=== PATIENT | male | born 1985 | race Caucasian/White ===

== ENCOUNTER 2023-05-05 16:23 | Inpatient (IN) | payer OTHER, SELFPAY ==
[2023-05-05 16:28] VITALS: BP 130/88; PULSE 81; O2SAT 98
[2023-05-05 16:40] VITALS: BP 130/87; PULSE 92; RESP 18; TEMP 36.6; O2SAT 98; BMI 25.1
--- NOTE | 2023-05-05 16:49 | PC.NURSE ---
Initial contact with pt. pt changed into hospital attire, snacks and fluids given. pt denies any SI, reports no ETOH or other substances, states he has been very anxious and depressed.
--- NOTE | 2023-05-05 17:09 | MHC.CARE ---
Pt had a court hearing today in [place] for [address]. [address] clinician called to inquire on how they can get him here as [place] [facility] [place].
[2023-05-05 17:10] LABS: MANUAL DIFF FLAG NO
[2023-05-05 17:14] LABS: Basophils Percent Auto 0.4 % (0-2); Eosinophils Percent Auto 0.1 % (0-4); Hematocrit 45.1 % (42.0-52.0); Hemoglobin 14.9 g/dl (14.0-18.0); Imm Gran Abs Auto 0.03 X10*3/uL (0.00-0.03); Imm Gran Pct Auto 0.4 % (0.0-0.4); Lymphocytes Absolute Auto 1.7 X10*3/uL (1.2-4.9); Mean Corpuscular Hemoglobin 30.8 pg (27.0-33.0); Mean Corpuscular Volume 93.2 fL (80.0-98.0); Mean Platelet Volume 8.3 fL (9.4-12.4); Monocytes Absolute Auto 0.9 X10*3/uL (0.1-1.2); Monocytes Percent Auto 10.3 % (2-11); Neutrophils Absolute Auto 5.9 x10*3/uL (2.0-8.3); Neutrophils Percent Auto 68.8 % (45-73); Platelet Count 191 X10*3/uL (160-400); Red Blood Count 4.84 X10*6/uL (4.60-5.80); Red Cell Distribution Width 12.9 % (11.0-16.0); White Blood Count 8.6 X10*3/uL (4.8-10.8)
[2023-05-05 17:28] LABS: Alanine Aminotransferase 12 U/L (0-40); Albumin Level 4.9 g/dL (3.5-5.0); Alkaline Phosphatase 73 U/L (39-117); Anion Gap 10 (12-20); Aspartate Amino Transferase 19 U/L (5-37); Bilirubin Total 0.5 mg/dL (0.0-1.0); Blood Urea Nitrogen 17 mg/dL (9-16); COVID-19 Test Negative (Negative); Calcium 10.7 mg/dL (8.4-10.2); Carbon Dioxide 28 mmol/L (22-29); Chloride 105 mmol/L (96-108); Creatinine Clr Calc Pharmacy 95.4; Estimated Glomerular Filt Rate > 60; Ethanol < 10 mg/dL; Glucose Random 167 mg/dL (60-115); IDNOW Serial# BCCEAD1C; Potassium 4.5 mmol/L (3.3-5.1); Sodium 138 mmol/L (135-145); Total Protein 7.9 g/dL (6.5-8.0)
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
[2023-05-05 18:05] LABS: Lithium 0.42 mmol/L (0.60-1.20)
--- NOTE | 2023-05-05 18:16 | PC.NURSE ---
Meal tray provided, pt ate well. Mother at bedside.
--- NOTE | 2023-05-05 18:39 | PC.NURSE ---
care team at bedside for eval
--- NOTE | 2023-05-05 19:30 | PC.NURSE ---
patient awake and conversing with mom and care team staff when t/w arrived to unit. client recognized me from a previous admission and looked relaxed in first starting to speak to me, seemed he had no questions at this time
[2023-05-05] MEDS: Nicotine Polacrilex 2 MG GUM 4 MG BUCCAL (19:34)
[2023-05-05 19:36] LABS: Appearance Urine Clear; Color Urine Yellow; Glucose Urine UA Negative (Negative); Leukocyte Esterase Urine Negative (Negative); Nitrite Urine Negative (Negative); Specific Gravity - Urine <= 1.005 (1.005-1.025); Urine Blood Negative (Negative); Urine Ketones Negative (Negative); Urine Protein Negative (Neg-Trace)
[2023-05-05 19:42] LABS: Amphetamine Screen Urine Not Detected (Not Detect); Barbiturates, Urine Not Detected (Not Detect); Benzodiazepines Screen Urine Not Detected (Not Detect); Cannabinoid Screen Urine Not Detected (Not Detect); Cocaine Screen Urine Not Detected (Not Detect); Fentanyl, urine Not Detected (Not Detect); Opiate Screen Urine Not Detected (Not Detect); Phencyclidine Screen Urine Not Detected (Not Detect)
[2023-05-05] MEDS: Lithium Carbonate 300 MG CAPSULE 900 MG PO (21:19)
[2023-05-05] MEDS: OLANZapine 10 MG TABLET 20 MG PO (21:19)
[2023-05-05] MEDS: Benztropine Mesylate 1 MG TABLET PO (21:19)
[2023-05-05] MEDS: cloZAPine 100 MG TABLET 600 MG PO (22:02)
--- NOTE | 2023-05-06 06:02 | PC.NURSE ---
patient appeared to sleep lengthy periods uninterruptedly and able to let wants/needs be known. overall patient is easily reassured and pleasant, still remains impulsive but maintains safe behavior.
[2023-05-06] MEDS: cloZAPine 100 MG TABLET 200 MG PO (08:57)
[2023-05-06] MEDS: Benztropine Mesylate 1 MG TABLET PO ×2 (08:57→20:23)
[2023-05-06] MEDS: Nicotine Polacrilex 2 MG GUM 4 MG BUCCAL (08:58)
[2023-05-06] MEDS: Nicotine Polacrilex 2 MG GUM BUCCAL ×6 (11:16→22:09)
--- NOTE | 2023-05-06 12:20 | PC.NURSE ---
patient is alert and able to make needs known. Patient continues to ambulate independently around unit. Patient took morning medications and requested PRN nicotine gum. Patient has a good appetite and ate 100% of breakfast. Patient sitting in chair watching tv in common area at this time.
[2023-05-06 14:33] VITALS: BP 122/81; PULSE 101; TEMP 36.9; O2SAT 98
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
[2023-05-06] MEDS: OLANZapine 10 MG TABLET 20 MG PO (20:23)
[2023-05-06] MEDS: Lithium Carbonate 300 MG CAPSULE 900 MG PO (20:23)
[2023-05-06 20:32] VITALS: BP 147/95; PULSE 92; RESP 18; TEMP 36.6; O2SAT 99
[2023-05-06] MEDS: cloZAPine 100 MG TABLET 600 MG PO (21:41)
--- NOTE | 2023-05-07 | ECG_ITS ---
Test Reason : CHECK PROLONG QT Blood Pressure : / mmHG Vent. Rate : 095 BPM Atrial Rate : 095 BPM P-R Int : 150 ms QRS Dur : 108 ms QT Int : 348 ms P-R-T Axes : 055 074 042 degrees QTc Int : 437 ms Normal sinus rhythm Nonspecific T wave abnormality Abnormal ECG No previous ECGs available Referred By: Jesus Bonilla Electronically Signed By:DEE PATTERSON MD
[2023-05-07 06:35] VITALS: RESP 17
--- NOTE | 2023-05-07 08:39 | PC.NURSE ---
pt difficult to understand, flights of ideas and delusions consistent. pt in behavioral control at this time
[2023-05-07] MEDS: Benztropine Mesylate 1 MG TABLET PO ×2 (08:43→21:01)
--- NOTE | 2023-05-07 08:53 | PC.NURSE ---
call placed to pharmacy for clozaril not loaded in pyxis
[2023-05-07] MEDS: Nicotine Polacrilex 2 MG GUM BUCCAL ×6 (08:56→22:12)
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
--- NOTE | 2023-05-07 09:58 | MHC.CARE ---
Jamal with [facility], calls with inquiries into patient's potential for admission as well as to offer any support with legal matters pertaining to the 12e if needed, i.e. reaching out to the courts, petitioning for more days if needed.
[2023-05-07] MEDS: cloZAPine 100 MG TABLET 200 MG PO (10:23)
[2023-05-07 13:57] LABS: Parathyroid Hormone Intact 77.7 pg/mL (8.7-77.1)
[2023-05-07 16:56] LABS: Vitamin D 25-OH Total 37.3 ng/mL (>30)
--- NOTE | 2023-05-07 19:47 | PC.NURSE ---
patient seated in milieu, at times, briskly going to door looking out crack in door trying to get view of outside, responds to redirection. appears in no distress
[2023-05-07] MEDS: Lithium Carbonate 300 MG CAPSULE 900 MG PO (21:01)
[2023-05-07] MEDS: cloZAPine 100 MG TABLET 600 MG PO (21:01)
[2023-05-07] MEDS: OLANZapine 10 MG TABLET 20 MG PO (21:01)
[2023-05-07 21:56] VITALS: BP 128/85; PULSE 88; RESP 16; TEMP 36.8; O2SAT 99
[2023-05-07] MEDS: Sennosides/Docusate Sodium TABLET 1 TAB PO (22:26)
[2023-05-07 23:50] VITALS: BP 134/82; PULSE 97; RESP 14; TEMP 36.7; O2SAT 100; BMI 25.4
--- NOTE | 2023-05-08 04:28 | PC.ADMIT ---
this is the first M3 admission for this 37 year old male. patient with previous inpatient admissions for behavioral health. legal status CV. dx: schizoaffective d/o. was a referral from [facility]. nurse to nurse, collateral information obtained prior to admission. patient was referred to the ER after a section 12E was obtained from the courts. patient's mother is guardian. patient described as impulsive and delusional per assessment. see crisis assessment. medication reconciliation completed while in the emergency room. has been compliant with medications as out patient and while in the emergency. is on clozaril. clozaril/norclozaril level pending. on arrival to unit at 2333 patient was cooperative to skin check, weight, VS. while sitting in dayroom patient impulsively calling out for his sister, checking the length of the hallways. when re oriented to unit and that he was in the hospital stated ''I know that'' denies SI/HI. impulsive in movement but not agitation noted. no drug/alcohol issues. no medical issues noted. oriented to unit. safety tool, treatment plan initiated.
--- NOTE | 2023-05-08 07:01 | PHA.MEDREC ---
Pharmacy Consult ? Medication Reconciliation Pharmacy has completed the medication reconciliation.
[2023-05-08 07:15] VITALS: BP 131/77; PULSE 92; RESP 18; TEMP 36.6; O2SAT 98
[2023-05-08 08:44] LABS: Lithium 0.52 mmol/L (0.60-1.20)
[2023-05-08] MEDS: Benztropine Mesylate 1 MG TABLET PO ×2 (08:56→21:07)
[2023-05-08] MEDS: Sennosides/Docusate Sodium TABLET 1 TAB PO ×2 (08:56→21:08)
[2023-05-08] MEDS: cloZAPine 100 MG TABLET 200 MG PO (08:56)
[2023-05-08 08:57] LABS: Alanine Aminotransferase 13 U/L (0-40); Albumin Level 4.5 g/dL (3.5-5.0); Alkaline Phosphatase 70 U/L (39-117); Anion Gap 9 (12-20); Aspartate Amino Transferase 18 U/L (5-37); Bilirubin Total 0.4 mg/dL (0.0-1.0); Blood Urea Nitrogen 17 mg/dL (9-16); Calcium 10.5 mg/dL (8.4-10.2); Carbon Dioxide 28 mmol/L (22-29); Chloride 109 mmol/L (96-108); Cholesterol 158 mg/dL (<200); Creatinine Clr Calc Pharmacy 113.4; Estimated Glomerular Filt Rate > 60; Glucose Fasting 97 mg/dL (60-99); HDL Cholesterol 59 mg/dL (>40); LDL Cholesterol Calculated 78 mg/dL (<100); Potassium 4.6 mmol/L (3.3-5.1); Sodium 141 mmol/L (135-145); Total Protein 7.2 g/dL (6.5-8.0); Triglycerides 108 mg/dL (<150)
--- NOTE | 2023-05-08 08:58 | HO.PSYADMNOT ---
HPI Date of Service: 05/08/23 Chief Complaint: Psychosis Dangerous Behavior HPI Narrative: per CARE team evaluation pt has not been at his baseline, per pt's mother, for the past several months. he has been very paranoid and has, concerningly, been attempting to exit moving vehicles. it is unclear exactly how he got to the hospital, but CARE team ariana states his mother and his outpt psych MD cervantes obtained a section 12e in [facility], which is a court order for mental health eval. CARE team evlorenzo reports collateral collected from Radha at [facility] in [place], who reported pt has a h/o engaging in risky behaviors, is a flight risk and is resistant to going inpatient. she reports that pt has a hx of self harm via cutting, stalking behaviors toward clients, accused of sexually inappropriate behaviors toward other clients, property destruction, and poor judgment due to psychosis. it is unclear if any of these behaviors have been occurring recently, or if this is purely historical data. per CARE team eval, pt's mother has been trying to get a second opinion for pt from dr. ireland and approached outpt practice but was informed it is full. 12e was obtained and pt brought to [facility]. recent behaviors identified in CARE team ariana are attempting to jump out of presumably moving vehicles, as well as running into the road when he is experiencing delusions (specifically indicated not to be a SA). 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 he has reportedly had numerous medication trials, per dr. cervantes, and is essentially at baseline at present. he informed mother of this, and mother is interested in second opinion. on interview with MD, pt is very cautious, unable to remain in interview room for interview, asks MD to speak with him as we walk in the ivy. he denies safety concerns or substance use. he identifies as target symptoms sedation, anxiety, and depression. he is unsure how his mood is today. he observes that there is a man in a suit, with a knife, who wants to kill pt's polk, whom he reports he is going to and who loves him. he adds that she is from [facility]. he states he does not wish to be in the hospital very long and encourages MD to meet with his mother. Past Psychiatric History: h/o childhood OCD and tourette's Dx. first psychotic break around 19 yo, mother has had guardianship of him since. hosps: h/o hosps, number unknown SA: pt denies SIB: pt denies, Hx collected from [facility] [place] indicates otherwise outpt: [facility] for meds. Medical Evaluation Reviewed: Yes [facility] Narrative: ?TBI Family History: bipolar with psychosis on the maternal side, possible schizoaffective on father's side, per CARE team report Social History: born in [facility] when he was 8 yo. has older brother and sister. left school in 8th grade, got GED later. [facility] [place], [place]. [facility]. has been there over 1 year. h/o DCF involvement, pt was removed from mother's care due to school delinquencies. father lives in [place]. Substance History: none reported Trauma History: endorsed h/o trauma but did not divulge details. did divulge h/o bullying in [employer]. Diagnostics Vital Signs (24Hr): Vital Signs - 24 hr 05/07/23 21:56 05/07/23 23:50 05/08/23 07:15 Temperature 98.3 F 98.1 F 97.8 F Pulse Rate 88 97 92 Respiratory Rate 16 14 18 Blood Pressure 128/85 134/82 131/77 Pulse Oximetry 99 100 98 Oxygen Delivery Method Room Air Room Air Room Air BMI result Body Mass Index 25.4 Labs 05/05/23 17:06 05/08/23 08:02 Labs: Laboratory Results - last 48 hr 05/07/23 05/08/23 05/08/23 13:22 08:02 08:08 Sodium 141 Potassium 4.6 Chloride 109 H Carbon Dioxide 28 Anion Gap 9 L BUN 17 H Creatinine 0.90 Estim Creat Clear Calc 113.4 Estimated GFR > 60 Fasting Glucose 97 Calcium 10.5 H Total Bilirubin 0.4 AST 18 ALT 13 Alkaline Phosphatase 70 Total Protein 7.2 Albumin 4.5 Triglycerides 108 Cholesterol 158 LDL Cholesterol, Calc 78 HDL Cholesterol 59 25-OH Vitamin D Total 37.3 PTH Intact 77.7 H [place] 0.52 L Meds/Allergies Meds Home Medications Medication Instructions Recorded Confirmed Type acetaminophen 325 mg tablet 650 mg PO Q6H PRN Pain, Mild 05/05/23 05/05/23 History albuterol sulfate 90 mcg/actuation 2 puff inhalation Q4H PRN 05/05/23 05/05/23 History aerosol inhaler (Ventolin HFA) Shortness Of Breath benztropine 1 mg tablet 1 mg PO BID 05/05/23 05/05/23 History clozapine 200 mg tablet 200 mg PO DAILY 05/05/23 05/05/23 History clozapine 200 mg tablet 600 mg PO BEDTIME 05/05/23 05/05/23 History dextromethorphan-guaifenesin 10 10 ml PO Q4H PRN Cough 05/05/23 05/05/23 History mg-100 mg/5 mL oral syrup docusate sodium 100 mg capsule 100 mg PO BID PRN Constipation 05/05/23 05/05/23 History lithium carbonate 300 mg capsule 900 mg PO BEDTIME 05/05/23 05/05/23 History nicotine (polacrilex) 2 mg gum 2 mg PO Q30M PRN Nicotine Cravings 05/05/23 05/05/23 History olanzapine 20 mg tablet 20 mg PO BEDTIME 05/05/23 05/05/23 History Allergies Allergies Allergy/AdvReac Type Severity Reaction Status Date / Time Environmental Allergy Mild UNKNOWN Uncoded 02/23/20 17:44 Mental Status Exam Mental Status Exam Narrative: adequately dressed and groomed. cooperative. no PMA/PMR. speech nml amound and rate. decr loudness and latency. thoughts vary from linear to tangential. delusional. affect blunted. mood unsure. denies SI/SIBI/HI/AVH. Assessment & Plan Assessment & Plan (1) Chronic schizophrenia: Status: Acute Code(s): F20.9 - Schizophrenia, unspecified Plan schizophrenia, chronic, treatment refractory collect collateral from helen on med trials, alternate therapies tried (ie, ECT), and medical Hx (TBI was mentioned by helen according to CARE team ariana). lithium subtherapeutic. clozaril 800 - level drawn, awaiting results calcium and PTH mildly elevated continue current medications for now pending collateral from helen Patient educated on: medication risk/benefits Reason for continued inpatient stay Substantial Risk for: harm to self and inability to function Statement Statement: I have reviewed the history and physical and performed a pertinent examination on my patient. No changes have occurred unless specified. If the History and Physical was not performed prior to admission, the Hospitalist's service will be consulted for completing the admission physical. Time Spent With Patient Time: Total time managing care of this patient today __75__ minutes.
[2023-05-08 09:13] LABS: Thyroid Stimulating Hormone 2.74 uIU/mL (0.32-4.0)
[2023-05-08] MEDS: Nicotine Polacrilex 2 MG GUM BUCCAL ×4 (12:33→21:08)
[2023-05-08 21:00] VITALS: BP 133/79; PULSE 99; RESP 14; TEMP 37.2; O2SAT 97
[2023-05-08] MEDS: Lithium Carbonate 300 MG CAPSULE 900 MG PO (21:07)
[2023-05-08] MEDS: cloZAPine 100 MG TABLET 600 MG PO (21:07)
[2023-05-08] MEDS: OLANZapine 10 MG TABLET 20 MG PO (21:07)
[2023-05-09 08:28] VITALS: BP 97/55; PULSE 84; TEMP 36.2; O2SAT 96
[2023-05-09] MEDS: Sennosides/Docusate Sodium TABLET 1 TAB PO ×2 (09:27→21:13)
[2023-05-09] MEDS: Benztropine Mesylate 1 MG TABLET PO ×2 (09:28→21:13)
[2023-05-09] MEDS: cloZAPine 100 MG TABLET 200 MG PO (09:28)
[2023-05-09] MEDS: Nicotine Polacrilex 2 MG GUM BUCCAL ×4 (11:16→20:15)
--- NOTE | 2023-05-09 13:10 | P.PNPSI_ITS ---
Subjective Subjective Date of Service: 05/09/23 Reason For Visit: Psychosis Dangerous Behavior Medical Problems Affecting Mental Status: No Interim History: met with patient. Discussed with Nursing. Some anxiety and internal preoccupation. Likes to pace the hallways. Also likes looking outside the door of the unit and does not appear to be exit seeking. Reports he is doing okay. Reports depression and anxiety are better. Reports clozapine makes him feel sluggish. Denied constipation and had a bowel movement yesterday. Reports feeling safe. Reports in the past he has had some hallucinations and I trick myself Medication Compliance: Yes Side effects from medications: No Attending Groups: Intermittent Review of Systems Acute medical concerns: No Review of Systems Review of Systems Yes all other systems are reviewed and are negative Mental Status Exam Mental Status Exam Narrative: adequately dressed and groomed. cooperative. no PMA/PMR. speech nml amound and rate. decr loudness and latency. thoughts vary from linear to tangential. baseline delusions. affect blunted. mood ok denies SI/SIBI/HI/AVH. Diagnostics Vital Signs (24Hr): Vital Signs - 24 hr 05/08/23 21:00 05/09/23 08:28 Temperature 98.9 F 97.1 F Pulse Rate 99 84 Respiratory Rate 14 Blood Pressure 133/79 97/55 L Pulse Oximetry 97 96 Oxygen Delivery Method Room Air Room Air BMI result Body Mass Index 25.4 Labs 05/05/23 17:06 05/08/23 08:02 Labs: Laboratory Results - last 48 hr 05/07/23 05/08/23 05/08/23 13:22 08:02 08:08 Sodium 141 Potassium 4.6 Chloride 109 H Carbon Dioxide 28 Anion Gap 9 L BUN 17 H Creatinine 0.90 Estim Creat Clear Calc 113.4 Estimated GFR > 60 Fasting Glucose 97 Calcium 10.5 H Total Bilirubin 0.4 AST 18 ALT 13 Alkaline Phosphatase 70 Total Protein 7.2 Albumin 4.5 Triglycerides 108 Cholesterol 158 LDL Cholesterol, Calc 78 HDL Cholesterol 59 25-OH Vitamin D Total 37.3 TSH 2.74 PTH Intact 77.7 H [place] 0.52 L Medications Medications Current Medications Acetaminophen (Acetaminophen 325 Mg Tablet) 650 mg PO Q6H PRN PRN Reason: Pain, Mild Al Hydroxide/Mg Hydroxide (Magnesium Hydrox/Alum Hydrox 30 Ml Oral.Susp) 30 ml PO Q6H PRN PRN Reason: Heartburn/Nausea Albuterol Sulfate (Albuterol Sulfate 90 Mcg 8 Gm Inhaler) 2 puff INHALE Q4H PRN PRN Reason: Shortness Of Breath Benztropine Mesylate (Benztropine Mesylate 1 Mg Tablet) 1 mg PO BID [facility] Last Admin: 05/09/23 09:28 Dose: 1 mg Clozapine (Clozapine 100 Mg Tablet) 200 mg PO DAILY [facility] Last Admin: 05/09/23 09:28 Dose: 200 mg Clozapine (Clozapine 100 Mg Tablet) 600 mg PO BEDTIME [facility] Last Admin: 05/08/23 21:07 Dose: 600 mg Guaifenesin/Dextromethorphan (Guaifenesin Dm 100/10/5 Ml 5 Ml Syrup) 10 ml PO Q4H PRN PRN Reason: Cough [place] Carbonate ([place] Carbonate 300 Mg Capsule) 900 mg PO BEDTIME [facility] Last Admin: 05/08/23 21:07 Dose: 900 mg Magnesium Hydroxide (Milk Of Magnesia 30 Ml Oral.Susp) 30 ml PO DAILY PRN PRN Reason: Constipation Nicotine Polacrilex (Nicotine Polacrilex 2 Mg Gum) 2 mg BUCCAL Q2H PRN PRN Reason: Nicotine Cravings Last Admin: 05/09/23 11:16 Dose: 2 mg Olanzapine (Olanzapine 10 Mg Tablet) 20 mg PO BEDTIME [facility] Last Admin: 05/08/23 21:07 Dose: 20 mg Senna/Docusate Sodium (Sennosides/Docusate Sodium Tablet) 1 tab PO BID [facility] Last Admin: 05/09/23 09:27 Dose: 1 tab Allergies Allergies Allergy/AdvReac Type Severity Reaction Status Date / Time Environmental Allergy Mild UNKNOWN Uncoded 02/23/20 17:44 Assessment & Plan Assessment & Plan (1) Chronic schizophrenia: Status: Acute Code(s): F20.9 - Schizophrenia, unspecified Plan schizophrenia, chronic, treatment refractory collect collateral from helen on med trials, alternate therapies tried (ie, ECT), and medical Hx (TBI was mentioned by helen according to CARE team ariana). lithium subtherapeutic. clozaril 800 - level drawn, awaiting results calcium and PTH mildly elevated continue current medications for now pending collateral from helen 05/09/23: no changes to primary teams plan Reason for continued inpatient stay Substantial Risk for: rapid decompensation Time Spent With Patient Time: Total time managing care of this patient today ____ minutes.
[2023-05-09] MEDS: cloZAPine 100 MG TABLET 600 MG PO (21:12)
[2023-05-09] MEDS: Lithium Carbonate 300 MG CAPSULE 900 MG PO (21:13)
[2023-05-09] MEDS: OLANZapine 10 MG TABLET 20 MG PO (21:13)
[2023-05-09 21:20] VITALS: BP 118/68; PULSE 120; RESP 14; TEMP 36.7; O2SAT 96
[2023-05-10 00:48] LABS: Clozapine (Clozaril) 690 mcg/L; Norclozapine 431 mcg/L (25-400)
[2023-05-10 07:57] VITALS: BP 116/71; PULSE 94; TEMP 36.1; O2SAT 99
[2023-05-10] MEDS: cloZAPine 100 MG TABLET 200 MG PO (08:28)
[2023-05-10] MEDS: Sennosides/Docusate Sodium TABLET 1 TAB PO ×2 (08:28→21:19)
[2023-05-10] MEDS: Benztropine Mesylate 1 MG TABLET PO ×2 (08:29→21:18)
--- NOTE | 2023-05-10 10:14 | P.PNPSI_ITS ---
Subjective Subjective Date of Service: 05/10/23 Reason For Visit: Psychosis Dangerous Behavior Interim History: Some anxiety and internal preoccupation. Likes to pace the hallways. Also likes looking outside the door of the unit and does not appear to be exit seeking I like seeing who is coming . Reports he is doing okay. Reports depression and anxiety are better. Reports feeling safe. Medication Compliance: Yes Side effects from medications: No Attending Groups: No Review of Systems Acute medical concerns: No Review of Systems Review of Systems Yes all other systems are reviewed and are negative Mental Status Exam Mental Status Exam Narrative: adequately dressed and groomed. cooperative. no PMA/PMR. speech nml amound and rate. decr loudness and latency. thoughts vary from linear to tangential. baseline delusions. affect blunted. mood ok denies SI/SIBI/HI/AVH. Diagnostics Vital Signs (24Hr): Vital Signs - 24 hr 05/09/23 21:20 05/10/23 07:57 Temperature 98.1 F 96.9 F Pulse Rate 120 H 94 Respiratory Rate 14 Blood Pressure 118/68 116/71 Pulse Oximetry 96 99 Oxygen Delivery Method Room Air Room Air BMI result Body Mass Index 25.4 Labs 05/05/23 17:06 05/08/23 08:02 Labs: Laboratory Results - last 48 hr 05/07/23 13:22 Clozapine 690 Norclozapine 431 H Medications Medications Current Medications Acetaminophen (Acetaminophen 325 Mg Tablet) 650 mg PO Q6H PRN PRN Reason: Pain, Mild Al Hydroxide/Mg Hydroxide (Magnesium Hydrox/Alum Hydrox 30 Ml Oral.Susp) 30 ml PO Q6H PRN PRN Reason: Heartburn/Nausea Albuterol Sulfate (Albuterol Sulfate 90 Mcg 8 Gm Inhaler) 2 puff INHALE Q4H PRN PRN Reason: Shortness Of Breath Benztropine Mesylate (Benztropine Mesylate 1 Mg Tablet) 1 mg PO BID [facility] Last Admin: 05/10/23 08:29 Dose: 1 mg Clozapine (Clozapine 100 Mg Tablet) 200 mg PO DAILY [facility] Last Admin: 05/10/23 08:28 Dose: 200 mg Clozapine (Clozapine 100 Mg Tablet) 600 mg PO BEDTIME [facility] Last Admin: 05/09/23 21:12 Dose: 600 mg Guaifenesin/Dextromethorphan (Guaifenesin Dm 100/10/5 Ml 5 Ml Syrup) 10 ml PO Q4H PRN PRN Reason: Cough [place] Carbonate ([place] Carbonate 300 Mg Capsule) 900 mg PO BEDTIME [facility] Last Admin: 05/09/23 21:13 Dose: 900 mg Magnesium Hydroxide (Milk Of Magnesia 30 Ml Oral.Susp) 30 ml PO DAILY PRN PRN Reason: Constipation Nicotine Polacrilex (Nicotine Polacrilex 2 Mg Gum) 2 mg BUCCAL Q2H PRN PRN Reason: Nicotine Cravings Last Admin: 05/09/23 20:15 Dose: 2 mg Olanzapine (Olanzapine 10 Mg Tablet) 20 mg PO BEDTIME [facility] Last Admin: 05/09/23 21:13 Dose: 20 mg Senna/Docusate Sodium (Sennosides/Docusate Sodium Tablet) 1 tab PO BID [facility] Last Admin: 05/10/23 08:28 Dose: 1 tab Allergies Allergies Allergy/AdvReac Type Severity Reaction Status Date / Time Environmental Allergy Mild UNKNOWN Uncoded 02/23/20 17:44 Assessment & Plan Assessment & Plan (1) Chronic schizophrenia: Status: Acute Code(s): F20.9 - Schizophrenia, unspecified Plan schizophrenia, chronic, treatment refractory collect collateral from helen on med trials, alternate therapies tried (ie, ECT), and medical Hx (TBI was mentioned by helen according to CARE team ariana). lithium subtherapeutic. clozaril 800 - level drawn, awaiting results calcium and PTH mildly elevated continue current medications for now pending collateral from helen 05/10/23: no changes to primary teams plan Reason for continued inpatient stay Substantial Risk for: rapid decompensation Time Spent With Patient Time: Total time managing care of this patient today ____ minutes.
[2023-05-10] MEDS: Nicotine Polacrilex 2 MG GUM BUCCAL ×4 (11:59→22:22)
[2023-05-10 18:00] VITALS: BP 144/84; PULSE 103; RESP 18; TEMP 37.3; O2SAT 97
[2023-05-10] MEDS: Lithium Carbonate 300 MG CAPSULE 900 MG PO (21:18)
[2023-05-10] MEDS: cloZAPine 100 MG TABLET 600 MG PO (21:18)
[2023-05-10] MEDS: OLANZapine 10 MG TABLET 20 MG PO (21:19)
[2023-05-11 07:15] VITALS: BP 111/76; PULSE 96; RESP 20; TEMP 36.3; O2SAT 96
[2023-05-11] MEDS: Sennosides/Docusate Sodium TABLET 1 TAB PO ×2 (10:14→20:27)
[2023-05-11] MEDS: Benztropine Mesylate 1 MG TABLET PO ×2 (10:14→21:34)
[2023-05-11] MEDS: cloZAPine 100 MG TABLET 200 MG PO (10:14)
--- NOTE | 2023-05-11 13:10 | PC.NURSE ---
Patient submitted 3 day notice.
--- NOTE | 2023-05-11 13:15 | PC.NURSE ---
Patient submitted 3 day notice.
[2023-05-11] MEDS: Nicotine Polacrilex 2 MG GUM BUCCAL ×2 (14:49→18:34)
--- NOTE | 2023-05-11 17:09 | P.PNPSI_ITS ---
Subjective Subjective Date of Service: 05/11/23 Reason For Visit: Psychosis Dangerous Behavior Interim History: serially approaching MD for greetings and asking for discharge. pt was invited to place a 3-day notice, which he ultimately did. MD informed pt MD is awaiting contact with helen regarding his Hx prior to any further action. per staff, dep/anx 4. flat, guarded. preoccupied, RIS. + meds. future-oriented. visible. not attending any groups. Mental Status Exam Mental Status Exam Narrative: adequately dressed and groomed. cooperative. no PMA/PMR. speech nml amound and rate, loudness and latency. thoughts vary from linear to tangential. paranoid as decuded from his behavior (will not remain in room with door closed with MD). affect blunted. no SI/HI/AVH expressed. Diagnostics Vital Signs (24Hr): Vital Signs - 24 hr 05/10/23 18:00 05/11/23 07:15 Temperature 99.1 F 97.3 F Pulse Rate 103 H 96 Respiratory Rate 18 20 Blood Pressure 144/84 H 111/76 Pulse Oximetry 97 96 Oxygen Delivery Method Room Air Room Air BMI result Body Mass Index 25.4 Labs 05/05/23 17:06 05/08/23 08:02 Labs: Laboratory Results - last 48 hr 05/07/23 13:22 Clozapine 690 Norclozapine 431 H Medications Medications Current Medications Acetaminophen (Acetaminophen 325 Mg Tablet) 650 mg PO Q6H PRN PRN Reason: Pain, Mild Al Hydroxide/Mg Hydroxide (Magnesium Hydrox/Alum Hydrox 30 Ml Oral.Susp) 30 ml PO Q6H PRN PRN Reason: Heartburn/Nausea Albuterol Sulfate (Albuterol Sulfate 90 Mcg 8 Gm Inhaler) 2 puff INHALE Q4H PRN PRN Reason: Shortness Of Breath Benztropine Mesylate (Benztropine Mesylate 1 Mg Tablet) 1 mg PO BID [facility] Last Admin: 05/11/23 10:14 Dose: 1 mg Clozapine (Clozapine 100 Mg Tablet) 200 mg PO DAILY [facility] Last Admin: 05/11/23 10:14 Dose: 200 mg Clozapine (Clozapine 100 Mg Tablet) 600 mg PO BEDTIME [facility] Last Admin: 05/10/23 21:18 Dose: 600 mg Guaifenesin/Dextromethorphan (Guaifenesin Dm 100/10/5 Ml 5 Ml Syrup) 10 ml PO Q4H PRN PRN Reason: Cough [employer] Carbonate ([employer] Carbonate 300 Mg Capsule) 900 mg PO BEDTIME [facility] Last Admin: 05/10/23 21:18 Dose: 900 mg Magnesium Hydroxide (Milk Of Magnesia 30 Ml Oral.Susp) 30 ml PO DAILY PRN PRN Reason: Constipation Nicotine Polacrilex (Nicotine Polacrilex 2 Mg Gum) 2 mg BUCCAL Q2H PRN PRN Reason: Nicotine Cravings Last Admin: 05/11/23 14:49 Dose: 2 mg Olanzapine (Olanzapine 10 Mg Tablet) 20 mg PO BEDTIME [facility] Last Admin: 05/10/23 21:19 Dose: 20 mg Senna/Docusate Sodium (Sennosides/Docusate Sodium Tablet) 1 tab PO BID [facility] Last Admin: 05/11/23 10:14 Dose: 1 tab Allergies Allergies Allergy/AdvReac Type Severity Reaction Status Date / Time Environmental Allergy Mild UNKNOWN Uncoded 02/23/20 17:44 Assessment & Plan Assessment & Plan (1) Chronic schizophrenia: Status: Acute Code(s): F20.9 - Schizophrenia, unspecified Plan schizophrenia, chronic, treatment refractory collect collateral from helen on med trials, alternate therapies tried (ie, ECT), and medical Hx (TBI was mentioned by helen according to CARE team ariana). lithium subtherapeutic. clozaril 800 - level drawn, awaiting results calcium and PTH mildly elevated continue current medications for now pending collateral from helen 05/10/23: no changes to primary teams plan 05/11: clozapine level 690 (toxic > 900), norcloz 431 (0-400). exchanging messages with [email or web address]. continue current mgmt for now. Reason for continued inpatient stay Substantial Risk for: inability to function Time Spent With Patient Time: Total time managing care of this patient today __35__ minutes.
[2023-05-11 18:00] VITALS: RESP 18
[2023-05-11] MEDS: cloZAPine 100 MG TABLET 600 MG PO (21:33)
[2023-05-11] MEDS: Lithium Carbonate 300 MG CAPSULE 900 MG PO (21:34)
[2023-05-11] MEDS: OLANZapine 10 MG TABLET 20 MG PO (21:34)
[2023-05-12 08:01] VITALS: BP 121/71; PULSE 86; RESP 18; TEMP 36.3; O2SAT 96
[2023-05-12 08:27] LABS: Neut%MD 68.7 %; Neutrophils Absolute Auto 5.2 x10*3/uL (2.0-8.3); WBCANC 7.6 X10*3/uL
[2023-05-12] MEDS: cloZAPine 100 MG TABLET 200 MG PO (08:35)
[2023-05-12] MEDS: Sennosides/Docusate Sodium TABLET 1 TAB PO ×2 (08:35→21:00)
[2023-05-12] MEDS: Benztropine Mesylate 1 MG TABLET PO ×2 (08:35→21:00)
[2023-05-12] MEDS: Nicotine Polacrilex 2 MG GUM BUCCAL ×3 (10:59→18:40)
--- NOTE | 2023-05-12 14:38 | HO.PSYCHPN ---
Subjective Subjective Date of Service: 05/12/23 Reason For Visit: Psychosis Dangerous Behavior Interim History: no change in presentation. per staff, 3-day up 05/14. no anx/dep. +RIS. flat, visible. pacing, self-dialogue. slept about 7 hours. Mental Status Exam Mental Status Exam Narrative: adequately dressed and groomed. cooperative. no PMA/PMR. speech nml amound and rate, loudness and latency. thoughts vary from linear to tangential. paranoid as deduced from his behavior (will not remain in room with door closed with MD). affect blunted. no SI/HI/AVH expressed. Diagnostics Vital Signs (24Hr): Vital Signs - 24 hr 05/11/23 18:00 05/12/23 08:01 Temperature 97.4 F Pulse Rate 86 Respiratory Rate 18 18 Blood Pressure 121/71 Pulse Oximetry 96 Oxygen Delivery Method Room Air BMI result Body Mass Index 25.4 Labs 05/05/23 17:06 05/08/23 08:02 Labs: Laboratory Results - last 48 hr 05/12/23 08:15 Absolute Neuts (auto) 5.2 Medications Medications Current Medications Acetaminophen (Acetaminophen 325 Mg Tablet) 650 mg PO Q6H PRN PRN Reason: Pain, Mild Al Hydroxide/Mg Hydroxide (Magnesium Hydrox/Alum Hydrox 30 Ml Oral.Susp) 30 ml PO Q6H PRN PRN Reason: Heartburn/Nausea Albuterol Sulfate (Albuterol Sulfate 90 Mcg 8 Gm Inhaler) 2 puff INHALE Q4H PRN PRN Reason: Shortness Of Breath Benztropine Mesylate (Benztropine Mesylate 1 Mg Tablet) 1 mg PO BID [facility] Last Admin: 05/12/23 08:35 Dose: 1 mg Clozapine (Clozapine 100 Mg Tablet) 200 mg PO DAILY [facility] Last Admin: 05/12/23 08:35 Dose: 200 mg Clozapine (Clozapine 100 Mg Tablet) 600 mg PO BEDTIME [facility] Last Admin: 05/11/23 21:33 Dose: 600 mg Guaifenesin/Dextromethorphan (Guaifenesin Dm 100/10/5 Ml 5 Ml Syrup) 10 ml PO Q4H PRN PRN Reason: Cough [place] Carbonate ([place] Carbonate 300 Mg Capsule) 1,200 mg PO BEDTIME [facility] Magnesium Hydroxide (Milk Of Magnesia 30 Ml Oral.Susp) 30 ml PO DAILY PRN PRN Reason: Constipation Nicotine Polacrilex (Nicotine Polacrilex 2 Mg Gum) 2 mg BUCCAL Q2H PRN PRN Reason: Nicotine Cravings Last Admin: 05/12/23 14:32 Dose: 2 mg Olanzapine (Olanzapine 10 Mg Tablet) 20 mg PO BEDTIME [facility] Last Admin: 05/11/23 21:34 Dose: 20 mg Senna/Docusate Sodium (Sennosides/Docusate Sodium Tablet) 1 tab PO BID [facility] Last Admin: 05/12/23 08:35 Dose: 1 tab Allergies Allergies Allergy/AdvReac Type Severity Reaction Status Date / Time Environmental Allergy Mild UNKNOWN Uncoded 02/23/20 17:44 Assessment & Plan Assessment & Plan (1) Chronic schizophrenia: Status: Acute Code(s): F20.9 - Schizophrenia, unspecified Plan schizophrenia, chronic, treatment refractory collect collateral from helen on med trials, alternate therapies tried (ie, ECT), and medical Hx (TBI was mentioned by helen according to CARE team ariana). lithium subtherapeutic. clozaril 800 - level drawn, awaiting results calcium and PTH mildly elevated continue current medications for now pending collateral from helen 05/10/23: no changes to primary teams plan 05/11: clozapine level 690 (toxic > 900), norcloz 431 (0-400). exchanging messages with helen. continue current mgmt for now. 05/12: no change in presentation. 3-day up . collateral collected from helen, essentially that helen has worked with him for more than a decade and tried an extensive array of medications and medication combinations to no better result than present. beka to see patient tomorrow for consultation. planning family meeting at 11 on and discharge after. Reason for continued inpatient stay Substantial Risk for: inability to function and rapid decompensation Time Spent With Patient Time: Total time managing care of this patient today __45__ minutes.
--- NOTE | 2023-05-12 15:58 | PC.NURSE ---
Jamal called from pt's half-way, she's worried that his nutritional needs are not being met and is concerned about him being discharged too soon. RN explained that he's been eating 40-100% of his meals while he's here. She's also concerned about him developing a bladder infection or compaction due to constipation. RN explained that he's been taking Senokot and appears to be having regular bowel movements. When he's at his half-way, he's unable to eat his meals because he chooses to go outside and his poor concentration makes it difficult for him to stay in one area. She also reports him having poor fluid intake and only drinks coffee and cigarettes. She is advocating that he is a danger to himself and others because he has a tendency to jump out of moving vehicles.
[2023-05-12] MEDS: Lithium Carbonate 300 MG CAPSULE 1200 MG PO (20:59)
[2023-05-12] MEDS: cloZAPine 100 MG TABLET 600 MG PO (20:59)
[2023-05-12] MEDS: OLANZapine 10 MG TABLET 20 MG PO (20:59)
[2023-05-12 21:04] VITALS: BP 134/79; PULSE 105; RESP 16; TEMP 36.1; O2SAT 97
[2023-05-13 07:15] VITALS: BP 99/56; PULSE 74; RESP 16; TEMP 36.6; O2SAT 95
[2023-05-13] MEDS: Docusate Sodium 100 MG CAPSULE PO ×2 (09:16→21:33)
[2023-05-13] MEDS: cloZAPine 100 MG TABLET 200 MG PO (09:16)
[2023-05-13] MEDS: Benztropine Mesylate 1 MG TABLET PO ×2 (09:16→21:33)
[2023-05-13] MEDS: Nicotine Polacrilex 2 MG GUM BUCCAL ×3 (10:57→19:15)
--- NOTE | 2023-05-13 12:17 | HO.PSYCHPN ---
Subjective Subjective Date of Service: 05/13/23 Reason For Visit: Psychosis Dangerous Behavior Subjective Notes: Conditional Voluntary and 3 Day Guardianship: Yes Interim History: The patient is a 37-year-old male with a long history of treatment resistant schizophrenia, OCD symptoms who was referred with some reported assistance through the [place] [facility] Dr. Caceres And the patient's mother had been involved in advocating for him. He reportedly had recently been increasingly paranoid intrusive with other people, and had gotten out of car impulsively the patient states not to harm himself but he thought he saw someone he knew and reportedly was at a red light. There is no clear history of gautam noted. The patient has reportedly had multiple medical trials with according to Dr. Kadeem Gonzalez no significant improvement over his present baseline he is currently on lithium with lithium level of 0.5 clozapine with a level of 650 and olanzapine 30 mg daily The patient reportedly prior to admission had been increasingly paranoid fearful thinking someone was dressing like him and impersonating him, impulsive going out into the cold impulsively leaving cars, and had been increasingly fearful paranoid which appears to be a change in behavior and judgment He does live in a service at residential he does have some degree of ritualistic behavior obsessional rituals the patient himself generally has been denying all symptoms no insight into recent behavioral changes or why anyone might be concerned he states he generally gets along well in the [facility] setting he 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 No reported history of substance abuse There is a history of multiple medication trials in different families reported history of TBI Medication Compliance: Yes Review of Systems Acute medical concerns: No Mental Status Exam Mental Status Exam Narrative: Mental Status Exam Narrative: Appearance: Casually dressed Behavior: Somewhat on in behavior intermittently restless some apparent suspiciousness and talking privately difficulty sitting still some tapping behavior psychomotor: Restless Speech: Clear Thought proccess guarded denies most symptoms denies most recent behavior reported prior to admission mostly linear some digressions circumstantiality Thought content: Denies most symptoms states everything is fine some suspiciousness regarding being in a locked room states his mind does play tricks on him when asked about thinking some was in person Ng meeting him or seeing dangerous people when he was in the emergency room or in the car Mood: Anxious Affect: Somewhat constricted SI:denies HI:denies VH/AH:none denies appears at times to be responding to internal stimuli Delusions: Denies off hand but would not elaborate on prior discussions regarding people in person eating him more seeing dangers people in the community that made him anxious Insight/judgment: Impaired does not seem to understand concerns that people have regarding his behavior he was in control when seen Memory/cog: Diagnostics Vital Signs (24Hr): Vital Signs - 24 hr 05/12/23 21:04 05/13/23 07:15 Temperature 97.0 F 97.9 F Pulse Rate 105 H 74 Respiratory Rate 16 16 Blood Pressure 134/79 99/56 L Pulse Oximetry 97 95 Oxygen Delivery Method Room Air Room Air BMI result Body Mass Index 25.4 Labs 05/05/23 17:06 05/08/23 08:02 Labs: Laboratory Results - last 48 hr 05/12/23 08:15 Absolute Neuts (auto) 5.2 Medications Medications Current Medications Acetaminophen (Acetaminophen 325 Mg Tablet) 650 mg PO Q6H PRN PRN Reason: Pain, Mild Al Hydroxide/Mg Hydroxide (Magnesium Hydrox/Alum Hydrox 30 Ml Oral.Susp) 30 ml PO Q6H PRN PRN Reason: Heartburn/Nausea Albuterol Sulfate (Albuterol Sulfate 90 Mcg 8 Gm Inhaler) 2 puff INHALE Q4H PRN PRN Reason: Shortness Of Breath Benztropine Mesylate (Benztropine Mesylate 1 Mg Tablet) 1 mg PO BID [facility] Last Admin: 05/13/23 09:16 Dose: 1 mg Clozapine (Clozapine 100 Mg Tablet) 200 mg PO DAILY [facility] Last Admin: 05/13/23 09:16 Dose: 200 mg Clozapine (Clozapine 100 Mg Tablet) 600 mg PO BEDTIME [facility] Last Admin: 05/12/23 20:59 Dose: 600 mg Docusate Sodium (Docusate Sodium 100 Mg Capsule) 100 mg PO BID [facility] Last Admin: 05/13/23 09:16 Dose: 100 mg Docusate Sodium (Docusate Sodium 100 Mg Capsule) 100 mg PO DAILY PRN PRN Reason: Constipation Guaifenesin/Dextromethorphan (Guaifenesin Dm 100/10/5 Ml 5 Ml Syrup) 10 ml PO Q4H PRN PRN Reason: Cough [employer] Carbonate ([employer] Carbonate 300 Mg Capsule) 1,200 mg PO BEDTIME [facility] Last Admin: 05/12/23 20:59 Dose: 1,200 mg Magnesium Hydroxide (Milk Of Magnesia 30 Ml Oral.Susp) 30 ml PO DAILY PRN PRN Reason: Constipation Nicotine Polacrilex (Nicotine Polacrilex 2 Mg Gum) 2 mg BUCCAL Q2H PRN PRN Reason: Nicotine Cravings Last Admin: 05/13/23 10:57 Dose: 2 mg Olanzapine (Olanzapine 10 Mg Tablet) 20 mg PO BEDTIME [facility] Last Admin: 05/12/23 20:59 Dose: 20 mg Allergies Allergies Allergy/AdvReac Type Severity Reaction Status Date / Time Environmental Allergy Mild UNKNOWN Uncoded 02/23/20 17:44 Assessment & Plan Assessment & Plan (1) Chronic schizophrenia: Status: Acute Code(s): F20.9 - Schizophrenia, unspecified Plan schizophrenia, chronic, treatment refractory collect collateral from [facility] on med trials, alternate therapies tried (ie, ECT), and medical Hx (TBI was mentioned by [facility] according to CARE team ariana). lithium subtherapeutic. clozaril 800 - level drawn, awaiting results calcium and PTH mildly elevated continue current medications for now pending collateral from [facility] 05/10/23: no changes to primary teams plan 05/11: clozapine level 690 (toxic > 900), norcloz 431 (0-400). exchanging messages with [facility]. continue current mgmt for now. 05/12: no change in presentation. 3-day up . collateral collected from [facility], essentially that [facility] has worked with him for more than a decade and tried an extensive array of medications and medication combinations to no better result than present. beka to see patient tomorrow for consultation. planning family meeting at 11 on and discharge after. 05/13/2023 Patient presents something of a conundrum he clearly has a chronic psychotic disorder with periods of impulsivity intrusive behavior and poor judgment. These behaviors are not present in the inpatient setting he has not been aggressive intrusive impulsive or floridly paranoid although he does want to stay in the common area there is restlessness question akathisia which can produce impulsive behavior Neha is somewhat avoidant of groups and being around others his lithium level is 0.5 might benefit from an increased dose which might decrease impulsivity propranolol could also be used to help decreased impulsivity agitation particularly of related all to akathisia. Consideration could also be given to use of a mood stabilizing agent if increase dosing of lithium was not effective. Would have to monitor for decreased white blood cell count. Most essential issue at this point is that patient does have a 3 day would try and see if he would retract and would try higher dose of lithium and propranolol. Need clear information from residential a CCS team regarding patient's recent reported dangerous behavior impulsivity and whether this related to paranoia and hallucinations or impulsivity and poor judgment. Consideration could be given to commitment in retention depending on information given by outside staff Reason for continued inpatient stay Substantial Risk for: inability to function and rapid decompensation Time Spent With Patient Time: Total time managing care of this patient today ____ minutes.
[2023-05-13 21:15] VITALS: BP 153/85; RESP 16; TEMP 36.8; O2SAT 96
[2023-05-13] MEDS: OLANZapine 10 MG TABLET 20 MG PO (21:32)
[2023-05-13] MEDS: cloZAPine 100 MG TABLET 600 MG PO (21:32)
[2023-05-13] MEDS: Lithium Carbonate 300 MG CAPSULE 1200 MG PO (21:32)
[2023-05-14 07:30] VITALS: BP 107/59; TEMP 36.2; O2SAT 98
[2023-05-14] MEDS: Docusate Sodium 100 MG CAPSULE PO (09:41)
[2023-05-14] MEDS: Benztropine Mesylate 1 MG TABLET PO (09:41)
[2023-05-14] MEDS: cloZAPine 100 MG TABLET 200 MG PO (09:42)
--- NOTE | 2023-05-14 11:01 | PM.PSYDC ---
DS: Providers Provider Date of Service: 05/14/23 Date of admission: 05/07/23 22:33 Primary care physician: Unknown Physician DS: Diagnosis Discharge Diagnosis (1) Chronic schizophrenia: Status: Acute DS: Medications Discharge Medications Home Medications: Home Medications Medication Instructions Recorded Confirmed acetaminophen 325 mg tablet 650 mg PO Q6H PRN Pain, Mild 05/05/23 05/05/23 albuterol sulfate 90 mcg/actuation 2 puff inhalation Q4H PRN 05/05/23 05/05/23 aerosol inhaler (Ventolin HFA) Shortness Of Breath benztropine 1 mg tablet 1 mg PO BID 05/05/23 05/05/23 clozapine 200 mg tablet 200 mg PO DAILY 05/05/23 05/05/23 clozapine 200 mg tablet 600 mg PO BEDTIME 05/05/23 05/05/23 dextromethorphan-guaifenesin 10 10 ml PO Q4H PRN Cough 05/05/23 05/05/23 mg-100 mg/5 mL oral syrup docusate sodium 100 mg capsule 100 mg PO BID PRN Constipation 05/05/23 05/05/23 nicotine (polacrilex) 2 mg gum 2 mg PO Q30M PRN Nicotine Cravings 05/05/23 05/05/23 olanzapine 20 mg tablet 20 mg PO BEDTIME 05/05/23 05/05/23 Previous Rx's Medication Instructions Recorded lithium carbonate 300 mg capsule 1,200 mg (4 x 300 mg) PO BEDTIME 05/14/23 30 days #120 caps Mental Status Exam Mental Status Exam Narrative: adequately dressed and groomed. cooperative. no PMA/PMR. speech nml amound and rate, loudness and latency. thoughts generally linear and topical. less paranoid as deduced from his behavior. affect blunted. no SI/HI/AVH. Data Data Completed and Pending Completed studies during hospitalization [Text1]: 05/07/23 05/08/23 05/08/23 13:22 08:02 08:08 Absolute Neuts (auto) Sodium 141 Potassium 4.6 Chloride 109 H Carbon Dioxide 28 Anion Gap 9 L BUN 17 H Creatinine 0.90 Estim Creat Clear Calc 113.4 Estimated GFR > 60 Fasting Glucose 97 Calcium 10.5 H Total Bilirubin 0.4 AST 18 ALT 13 Alkaline Phosphatase 70 Total Protein 7.2 Albumin 4.5 Triglycerides 108 Cholesterol 158 LDL Cholesterol, Calc 78 HDL Cholesterol 59 25-OH Vitamin D Total 37.3 TSH 2.74 PTH Intact 77.7 H Clozapine 690 Norclozapine 431 H [place] 0.52 L 05/12/23 08:15 Absolute Neuts (auto) 5.2 Sodium Potassium Chloride Carbon Dioxide Anion Gap BUN Creatinine Estim Creat Clear Calc Estimated GFR Fasting Glucose Calcium Total Bilirubin AST ALT Alkaline Phosphatase Total Protein Albumin Triglycerides Cholesterol LDL Cholesterol, Calc HDL Cholesterol 25-OH Vitamin D Total TSH PTH Intact Clozapine Norclozapine [place] DS: Summary Hospital Course Hospital Course: per 05/08 admission note: per CARE team evaluation pt has not been at his baseline, per pt's mother, for the past several months. he has been very paranoid and has, concerningly, been attempting to exit moving vehicles. it is unclear exactly how he got to the hospital, but CARE team eval states his mother and his outpt psych MD caceres obtained a section 12e in [facility] [address], which is a court order for mental health eval. CARE team evlorenzo reports collateral collected from Radha at [facility] in [place], who reported pt has a h/o engaging in risky behaviors, is a flight risk and is resistant to going inpatient. she reports that pt has a hx of self harm via cutting, stalking behaviors toward clients, accused of sexually inappropriate behaviors toward other clients, property destruction, and poor judgment due to psychosis. it is unclear if any of these behaviors have been occurring recently, or if this is purely historical data. per CARE team eval, pt's mother has been trying to get a second opinion for pt from dr. ireland and approached outpt practice but was informed it is full. 12e was obtained and pt brought to [facility]. recent behaviors identified in CARE team eval are attempting to jump out of presumably moving vehicles, as well as running into the road when he is experiencing delusions (specifically indicated not to be a SA). 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 he has reportedly had numerous medication trials, per dr. caceres, and is essentially at baseline at present. he informed mother of this, and mother is interested in second opinion. on interview with MD, pt is very cautious, unable to remain in interview room for interview, asks MD to speak with him as we walk in the iv[place]. he denies safety concerns or substance use. he identifies as target symptoms sedation, anxiety, and depression. he is unsure how his mood is today. he observes that there is a man in a suit, with a knife, who wants to kill pt's polk, whom he reports he is going to and who loves him. he adds that she is from [facility]. he states he does not wish to be in the hospital very long and encourages MD to meet with his mother. Past Psychiatric History: h/o childhood OCD and tourette's Dx. first psychotic break around 19 yo, mother has had guardianship of him since. hosps: h/o hosps, number unknown SA: pt denies SIB: pt denies, Hx collected from [facility] indicates otherwise outpt: [facility] for meds. Medical Evaluation Reviewed: Yes [facility] Narrative: ?TBI Family History: bipolar with psychosis on the maternal side, possible schizoaffective on father's side, per CARE team report Social History: born in [facility] when he was 8 yo. has older brother and sister. left school in 8th grade, got GED later. lives at [facility] in [place], [place]. ACCS. has been there over 1 year. h/o DCF involvement, pt was removed from mother's care due to school delinquencies. father lives in [place]. Substance History: none reported Trauma History: endorsed h/o trauma but did not divulge details. did divulge h/o bullying in [employer]. Precis: schizophrenia, chronic, treatment refractory 05/08: collect collateral from [facility] on med trials, alternate therapies tried (ie, ECT), and medical Hx (TBI was mentioned by [facility] according to CARE team eval). lithium subtherapeutic. clozaril 800 - level drawn, awaiting results. calcium and PTH mildly elevated 05/09: continue current medications for now pending collateral from [facility] 05/10/23: no changes to primary teams plan 05/11: clozapine level 690 (toxic > 900), norcloz 431 (0-400). exchanging messages with [facility]. continue current mgmt for now. 05/12: no change in presentation. 3-day up . collateral collected from [facility], essentially that [facility] has worked with him for more than a decade and tried an extensive array of medications and medication combinations to no better result than present. beka to see patient tomorrow for consultation. planning family meeting at 11 on and discharge after. 05/13/2023: Patient presents something of a conundrum he clearly has a chronic psychotic disorder with periods of impulsivity intrusive behavior and poor judgment. These behaviors are not present in the inpatient setting he has not been aggressive intrusive impulsive or floridly paranoid although he does want to stay in the common area there is restlessness question akathisia which can produce impulsive behavior Neha is somewhat avoidant of groups and being around others his lithium level is 0.5 might benefit from an increased dose which might decrease impulsivity propranolol could also be used to help decreased impulsivity agitation particularly of related all to akathisia. Consideration could also be given to use of a mood stabilizing agent if increase dosing of lithium was not effective. Would have to monitor for decreased white blood cell count. Most essential issue at this point is that patient does have a 3 day would try and see if he would retract and would try higher dose of lithium and propranolol. Need clear information from [facility] a CCS team regarding patient's recent reported dangerous behavior impulsivity and whether this related to paranoia and hallucinations or impulsivity and poor judgment. Consideration could be given to commitment in retention depending on information given by outside staff 05/14: stable, family mtg held. pt discharged to outpt F/U as per plan. meds reviewed, reconciled, prescribed. beka consult 05/13: The patient is a 37-year-old male with a long history of treatment resistant schizophrenia, OCD symptoms who was referred with some reported assistance through the [place] court Dr. Caceres And the patient's mother had been involved in advocating for him. He reportedly had recently been increasingly paranoid intrusive with other people, and had gotten out of car impulsively the patient states not to harm himself but he thought he saw someone he knew and reportedly was at a red light. There is no clear history of gautam noted. The patient has reportedly had multiple medical trials with according to Dr. Kadeem Gonzalez no significant improvement over his present baseline he is currently on lithium with lithium level of 0.5 clozapine with a level of 650 and olanzapine 30 mg daily The patient reportedly prior to admission had been increasingly paranoid fearful thinking someone was dressing like him and impersonating him, impulsive going out into the cold impulsively leaving cars, and had been increasingly fearful paranoid which appears to be a change in behavior and judgment He does live in a service [facility] he does have some degree of ritualistic behavior obsessional rituals the patient himself generally has been denying all symptoms no insight into recent behavioral changes or why anyone might be concerned he states he generally gets along well in the [facility] setting he 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 No reported history of substance abuse There is a history of multiple medication trials in different families reported history of TBI Time Spent with Patient Time attestation: Total time managing care of this patient today ____ minutes. Time spent: Greater than 30 minutes Discharge Plan Discharge Anticipated Discharge Date/Time: 05/14/23 10:59 Patient Disposition: Home, Self-Care Discharge Diagnosis: Schizophrenia Referrals: Dr. Caceres (Psychiatry) [Other] - 06/03/23 10:00 am (IN OFFICE APPOINTMENT) [facility] [Provider Group] - 1 Week (If you have any questions or concerns, please utilize their walk in service or give them a call at the above number. ) Discharge Medications: New lithium carbonate 300 mg Capsule 1,200 mg PO BEDTIME 30 Days Qty: 120 0RF Continued acetaminophen 325 mg Tablet 650 mg PO Q6H PRN (Reason: Pain, Mild) nicotine (polacrilex) 2 mg gum 2 mg PO Q30M PRN (Reason: Nicotine Cravings) dextromethorphan-guaifenesin 10-100 mg/5 mL Syrup 10 ml PO Q4H PRN (Reason: Cough) benztropine 1 mg tablet 1 mg PO BID docusate sodium 100 mg capsule 100 mg PO BID PRN (Reason: Constipation) albuterol sulfate [Ventolin HFA] 90 mcg/actuation Hfa Aerosol Inhaler 2 puff INHALATION Q4H PRN (Reason: Shortness Of Breath) olanzapine 20 mg tablet 20 mg PO BEDTIME clozapine 200 mg tablet 200 mg PO DAILY clozapine 200 mg tablet 600 mg PO BEDTIME Discontinued lithium carbonate 300 mg capsule 900 mg PO BEDTIME Discharge Orders: Discharge Order (Routine); Ordered 05/15/23 Ordered By: Mj Galeano Diet: Advance to usual diet Activity on Discharge: As tolerated Stand Alone Forms: Patient Portal Discharge page, Community Support Care Plan Goals: remain safe and stable in the outpatient treatment setting Health Concerns: none Plan of Treatment: take medications as prescribed, attend appointments as scheduled Assessment: not at imminent risk of harm to self or others Discharge Date/Time: 05/14/23 11:35
== END 2023-05-14 11:35 | disposition home or self-care (01) | DRG 885 ==
LOC: HO.ED 05-07 06:57 → HO.PADLT16 05-07 22:45
PROVIDERS: Emergency Medicine; Nurse Practitioner Family; Social Worker; Admitting Provider Psychiatry & Neurology Psychiatry; Emergency Provider Emergency Medicine Emergency Medical Services; Visit Provider Psychiatry & Neurology Psychiatry
DX: F20.9 Schizophrenia, unspecified (principal); F17.210 Nicotine dependence, cigarettes, uncomplicated; Z71.6 Tobacco abuse counseling; Z20.822 Contact with and (suspected) exposure to COVID-19; Z79.899 Other long term (current) drug therapy
CPT/HCPCS: 36415; 80053; 80061; 80159; 80178; 80307; 81003; 82306; 83970; 84443; 85025; 85048; 87635; 93005; 99285; S9485

== ENCOUNTER → 2023-05-07 14:11 | Outpatient (BNV) | payer OTHER, SELFPAY | PROVIDERS: Admitting Provider Psychiatry & Neurology Psychiatry; Emergency Provider Emergency Medicine Emergency Medical Services; Visit Provider Internal Medicine Cardiovascular Disease | DX: R94.31 Abnormal electrocardiogram [ECG] [EKG] (principal) | CPT/HCPCS: 93010 ==

== ENCOUNTER → 2023-05-07 22:33 | Outpatient (BNV) | payer OTHER, SELFPAY | PROVIDERS: Admitting Provider Psychiatry & Neurology Psychiatry; Emergency Provider Emergency Medicine Emergency Medical Services; Visit Provider Psychiatry & Neurology Psychiatry | DX: F20.9 Schizophrenia, unspecified (principal) | CPT/HCPCS: 90792; 99231; 99232; 99239; 99499 ==

== ENCOUNTER → 2023-05-07 22:33 | Outpatient (BNV) | payer OTHER, SELFPAY | PROVIDERS: Admitting Provider Psychiatry & Neurology Psychiatry; Emergency Provider Emergency Medicine Emergency Medical Services; Visit Provider Psychiatry & Neurology Psychiatry | DX: F20.0 Paranoid schizophrenia (principal) | CPT/HCPCS: 99232 ==